=== PATIENT | male | born 1945 | race Caucasian/White ===

== ENCOUNTER → 2020-02-16 | Outpatient (CLI) | payer MEDICARE ==
[~2020-02-16] MED LIST: ALDACTONE50 M1 PO; INDERAL 10MG10 MG PO; JANTOVEN1 MG; LASIX40 M1 PO
[2020-02-16 12:19] LABS: PROTHROMBIN TIME 13.9 SECONDS (9.0-12.0)
[2020-02-22 11:20] VITALS: BP 85/57
== END ==
LOC: LAB 11:59
PROVIDERS: Family Medicine
DX: Z51.81 Encounter for therapeutic drug level monitoring (principal); Z79.01 Long term (current) use of anticoagulants

== ENCOUNTER → 2020-02-22 | Outpatient (CLI) | payer MEDICARE | LOC: RAD 06:59 | DX: R91.1 Solitary pulmonary nodule (principal); J84.10 Pulmonary fibrosis, unspecified; S22.41XA Multiple fractures of ribs, right side, initial encounter for closed fracture; K74.60 Unspecified cirrhosis of liver; K76.6 Portal hypertension; K80.20 Calculus of gallbladder without cholecystitis without obstruction; R18.8 Other ascites ==

== ENCOUNTER → 2020-02-23 | Outpatient (CLI) | payer MEDICARE ==
[2020-02-22 11:20] VITALS: BP 85/57
[2020-02-23 15:55] LABS: PROTHROMBIN TIME 16.6 SECONDS (9.0-12.0)
== END ==
LOC: LAB 14:54
PROVIDERS: Family Medicine
DX: Z79.01 Long term (current) use of anticoagulants (principal)

== ENCOUNTER → 2020-02-25 | Outpatient (CLI) | payer MEDICARE ==
[2020-02-22 11:20] VITALS: BP 85/57
== END ==
LOC: RAD 11:00
DX: R91.1 Solitary pulmonary nodule (principal); J84.10 Pulmonary fibrosis, unspecified; S22.41XA Multiple fractures of ribs, right side, initial encounter for closed fracture; K74.60 Unspecified cirrhosis of liver; K76.6 Portal hypertension; K80.20 Calculus of gallbladder without cholecystitis without obstruction

== ENCOUNTER → 2020-02-29 | Outpatient (CLI) | payer MEDICARE ==
[2020-02-22 11:20] VITALS: BP 85/57
[2020-02-29 16:49] LABS: PROTHROMBIN TIME 26.2 SECONDS (9.0-12.0)
== END ==
LOC: LAB 15:23
PROVIDERS: Family Medicine
DX: Z79.01 Long term (current) use of anticoagulants (principal)

== ENCOUNTER → 2020-03-03 | Outpatient (CLI) | payer MEDICARE ==
[2020-03-01 11:15] VITALS: BP 101/67
[~2020-03-03] MED LIST changes: -JANTOVEN1 MG; +JANTOVEN3 M1 PO; +JANTOVEN5 MG PO; +LACTULOSE SYRUP1 ML PO; +PANTOPRAZOLE SO40 MG PO; +ROXICODONE 55 MG/TAB PO
[2020-03-03 15:27] LABS: ALBUMIN 2.8 g/dL (3.4-4.8); POTASSIUM 4.7 mmol/L (3.5-5.1)
[2020-03-03 15:28] LABS: CALCIUM 8.2 mg/dL (8.3-10.5)
[2020-03-03 15:29] LABS: PROTHROMBIN TIME 27.5 SECONDS (9.0-12.0)
[2020-03-03 15:30] LABS: TOTAL PROTEIN 7.6 g/dL (6.2-8.1)
[2020-03-03 15:31] LABS: TOTAL BILIRUBIN 2.7 mg/dL (0.2-1.2)
[2020-03-03 15:32] LABS: HEMATOCRIT 38.3 % (42.0-52.0); HEMOGLOBIN 12.3 g/dL (13.5-18.0); MEAN CELL VOLUME 92 fl (78-100); MEAN CORPUSCULAR HEMOGLOBIN 30 pg (27-31); MEAN CORPUSCULAR HGB CONC 32 g/dL (33-37); MEAN PLATELET VOLUME 9.9 fl (7.4-10.4); PLATELET COUNT 147 K/mm3 (130-400); RED BLOOD COUNT 4.15 M/mm3 (4.20-5.60); RED CELL DISTRIBUTION WIDTH 19.4 % (11.5-14.5); WHITE BLOOD COUNT 4.3 K/mm3 (4.8-10.8)
[2020-03-03 16:31] LABS: LYMPHOCYTE 21 % (20-51); MONOCYTE 6 % (3-10); NEUTROPHILS 61 % (42-75)
== END ==
LOC: LAB 14:36
PROVIDERS: Family Medicine
DX: Z51.81 Encounter for therapeutic drug level monitoring (principal); K72.90 Hepatic failure, unspecified without coma; Z79.01 Long term (current) use of anticoagulants

== ENCOUNTER → 2020-03-07 | Outpatient (CLI) | payer MEDICARE ==
[2020-03-01 11:15] VITALS: BP 101/67
[2020-03-07 14:03] LABS: PROTHROMBIN TIME 34.8 SECONDS (9.0-12.0)
== END ==
LOC: LAB 13:37
PROVIDERS: Family Medicine
DX: Z51.81 Encounter for therapeutic drug level monitoring (principal); Z79.01 Long term (current) use of anticoagulants

== ENCOUNTER 2020-03-08 09:56 | Outpatient (RCR) | payer MEDICARE ==
[2020-02-22] VITALS (7 sets, daily range): BP systolic 79–101; BP diastolic 52–67
[2020-03-01 10:20] VITALS: BP 93/61
[2020-03-01 10:26] VITALS: BP 95/66
[2020-03-01 10:40] VITALS: BP 78/64
[2020-03-01 11:15] VITALS: BP 101/67
[~2020-03-08] VITALS: Ht 182.9 cm; Wt 74.7 kg
[~2020-03-08 09:56] MED LIST changes: -JANTOVEN5 MG PO; -LACTULOSE SYRUP1 ML PO; -PANTOPRAZOLE SO40 MG PO; -ROXICODONE 55 MG/TAB PO
[2020-03-08 10:15] VITALS: BP 96/58
[2020-03-08 10:23] VITALS: BP 102/66
[2020-03-08 10:30] VITALS: BP 107/76
[2020-03-08] MEDS ORDERED: JANTOVEN5 MG PO (10:39)
[2020-03-08] MEDS ORDERED: PANTOPRAZOLE SO40 MG PO (10:40)
[2020-03-08] MEDS ORDERED: LACTULOSE SYRUP1 ML PO (10:42)
[2020-03-08] MEDS ORDERED: ROXICODONE 55 MG/TAB PO (10:44)
[2020-03-08 10:45] VITALS: BP 106/72
[2020-03-08 11:05] VITALS: BP 106/70
== END 2020-05-22 | disposition still patient (30) ==
LOC: AMSURD
DX: K74.60 Unspecified cirrhosis of liver (principal)
CPT/HCPCS: C1729; P9047

== ENCOUNTER → 2020-03-10 | Outpatient (CLI) | payer MEDICARE ==
[2020-03-08 11:05] VITALS: BP 106/70
[~2020-03-10] MED LIST changes: +JANTOVEN5 MG PO; +LACTULOSE SYRUP1 ML PO; +PANTOPRAZOLE SO40 MG PO; +ROXICODONE 55 MG/TAB PO
== END ==
LOC: LAB 13:59
PROVIDERS: Family Medicine
DX: Z51.81 Encounter for therapeutic drug level monitoring (principal); Z79.01 Long term (current) use of anticoagulants